=== PATIENT | male | born 1960 | race Caucasian/White ===

== ENCOUNTER 2025-01-12 09:28 | Emergency (ER) | payer MEDICARE ==
[~2025-01-12] VITALS: Ht 182.9 cm; Wt 97.7 kg
[~2025-01-12 09:28] MED LIST: ASPI-1009 PO; DULO-31 PO; EST1T PO; FINA5TAB11 PO; GABA-338 PO; LORA0.5T PO; METO10TA3 PO; OXYC-658 PO; PANT40TA39 PO; SENN1TAB72 PO
[2025-01-12 09:29] VITALS: BP 117/76; PULSE 70; TEMP 98; O2SAT 96
--- NOTE | 2025-01-12 10:13 | RADIOLOGY REPORT ---
CLINICAL INDICATION: KNEE PAIN TECHNIQUE: 3 radiographic views of the right knee were obtained. Comparison: None FINDINGS/IMPRESSION: There is no evidence of acute fracture or dislocation. Moderate tricompartmental knee joint osteoarthrosis. Small right knee joint effusion.
--- NOTE | 2025-01-12 10:35 | Physician Documentation ---
History of Present Illness ~ Chief Complaint: Knee Pain Stated Complaint: R KNEE PAIN Time Seen by MD: 10:22 Primary Medical Doctor: RY GARDNER HPI 64-year-old female presents to the ED with a complaint of right knee pain. States that when she got out of her bed yesterday she felt a twisting motion in her right knee. Now has a severe pain and swelling to the affected limb. Denies any trauma other than the injury mentioned states that she has had a history of meniscal tears on the affected limb Day of Onset: Jan 12, 2025 Tetanus witin 5 years: No Medication Reconciliation Allergies: Coded Allergies: No Known Allergies (Unverified , 07/05/09) Scheduled Aspirin (Aspirin), 81 MG PO DAILY, (Reported) Duloxetine Hcl* (Cymbalta*), 60 MG PO DAILY, (Reported) Estradiol* (Estrace*), 6 MG PO DAILY, (Reported) Finasteride (Finasteride), 10 MG PO DAILY, (Reported) Gabapentin* (Gabapentin*), 600 MG PO TID, (Reported) Lorazepam* (Ativan*), 0.5 MG PO BID Metoclopramide Hcl* (Metoclopramide Hcl*), 10 MG PO Q6H, (Reported) Oxycodone Hcl IR* (Oxycodone IR*), 10 MG PO Q4H, (Reported) Pantoprazole Sodium* (Protonix*), 40 MG PO DAILY Sennosides/Docusate Sodium (Doc-Q-Lax Tablet), 1 EACH PO TID, (Reported) Past Medical History Past Medical History: Cholelithiasis, Pancreatitis, Chronic Back Pain Past Surgical History: appendectomy, cholecystectomy, orthopedic surgeries, tonsillectomy Alcohol Use: None Drug Use: none Lives with: Other Lives In: Home Occupation: disabled Review of Systems All Other Systems at this time: Reviewed and Negative ROS As stated above in the HPI, otherwise all systems are reviewed and negative. Physical Exam Vital Signs: Temperature: 98.0, Source: Temporal, Heart Rate: 70, Respiratory Rate: 16, BP: 117/76, Pulse Oximetry: 96, Weight: 97.730 Oxygen Flow Rate: 0 Physical Exam General: Alert, no apparent distress. . Extremities: Normal range of motion, no deformity. Positive Haydee's test with the external rotation. Mild swelling Neurologic: Oriented x4. Psychiatric: Normal mood and affect. Skin: Normal color, warm and dry. No edema, no ecchymosis. Progress Results/Orders Results/Orders Completed Orders - MASON REID NP Ketorolac Trometh 30mg/Ml Vial (Toradol (01/12/25 10:40) Medications Received in ER Medications (Trade) Dose Ordered Sig/Flor Route PRN Reason Start Time Stop Time Status Last Admin Dose Admin (Toradol inj. 30mg/ml) 30 mg ONCE ONCE IM 01/12/25 10:40 01/12/25 10:41 DC 01/12/25 11:07 30 MG Vital Signs 01/12/25 01/12/25 01/12/25 09:29 11:07 11:22 Temp 98.0 Pulse 70 Resp 16 17 B/P (MAP) 117/76 Pulse Ox 96 O2 Flow Rate 0 Medical Decision Making Additional information obtaine: old records Findings My physical exam and my personal interpretation of the patient's knee x-ray I suspect a possible lateral meniscal tear on the right side. there was no acute fractures in her x-ray. General Diff Dx:Considerations: Unlikely: Abrasion, Contusion, Fracture, Hematoma, Laceration, Malunion, Neurovascular injury, Open fracture, Sprain, Ulcer, Other Knee Diff Dx:Considerations: Include: Abrasion, Arthritis, Contusion, DJD, Fracture-femur, Fracture-fibula, Fracture-patella, Fracture-tibia, Gout, Hematoma, Laceration, Meniscus injury, Neurovascular injury, Open fracture, Rheumatoid arthritis, Septic, Sprain, Sprain-MCL, Sprain-LCL, Sprain-ACL, Sprain-PCL, Other Ankle Diff Dx:Considerations: Unlikely: Abrasion, Arthritis, Contusion, DJD, Fracture-metatarsal, Fracture-fibula, Fracture-tarsal, Fracture-tibia, Gout, Hematoma, Laceration, Malunion, Neurovascular injury, Nonunion, Open fracture, Osteomyelitis, Rheumatoid arthritis, Sprain, Septic, Ulcer, Other Foot Diff Dx:Considerations: Unlikely: Abrasion, Arthritis, Cellulitis, Contusion, Dislocation, DJD, Fracture-metatarsal, Fracture-phalynx, Fracture- tarsal, Gout, Hematoma, Ingrown toenail, Laceration, Malunion, Neurovascular injury, Open fracture, Paronychia, Puncture, Rheumatoid, Sprain, Septic, Subung ual hematoma, Ulcer, Other Toe Diff Dx:Considerations: Unlikely: Abrasion, Cellulitis, Contusion, Dislocat ion, Felon, Fracture, Hematoma, Laceration, Neurovascular injury, Open fracture, Paronychia, Subungual hematoma, Other Departure Disposition: HOME / SELF CARE / HOMELESS Impression: Primary Impression: Knee pain Condition: Stable Discharge Instructions: Knee Effusion Additional Instructions: As discussed I am recommending ibuprofen ice in 20 minute intervals. Your pain and inflammation will likely resolve however if your pain persists I recommend going to your primary care and requesting an MRI of your knee Referrals: NO PRIMARY CARE PROVIDER (PCP) Education Educated: Patient Educated regarding: diagnosis Signature Scribe Signature: f Attestation: Scribed for Mason Reid [employer] by Mason Sommers NP . 01/12/25 18:27 MASON REID NP Jan 12, 2025 10:35
[2025-01-12 11:07] VITALS: RESP 17
[2025-01-12] MEDS: ketorolac trometh 30MG/ML vial 30 MG/ML VIAL IM ONE (11:07)
== END 2025-01-12 11:15 | disposition home or self-care (01) ==
LOC: EDSEX 09:28 → ER 09:28
DX: M25.561 Pain in right knee (principal); G89.29 Other chronic pain; Z87.19 Personal history of other diseases of the digestive system; Z90.49 Acquired absence of other specified parts of digestive tract; Z90.89 Acquired absence of other organs; Z79.899 Other long term (current) drug therapy; Z79.82 Long term (current) use of aspirin
CPT/HCPCS: 73564; 96372; 99283; A6449; J1885